=== PATIENT | male | born 1960 | race Caucasian/White ===

== ENCOUNTER 2023-04-12 19:13 | Inpatient (IN) | payer MEDICARE, OTHER ==
[~2023-04-12] VITALS: Ht 170.2 cm; Wt 79.4 kg
[2023-04-12 19:49] LABS: BASOPHILS # (AUTO) 0.1 K/UL (0.0-0.2); EOSINOPHILS # (AUTO) 0.1 K/uL (0.0-0.7); EOSINOPHILS % (AUTO) 2.3 % (0.0-7.0); HEMATOCRIT 36.6 % (36.7-47.1); HEMOGLOBIN 12.3 g/dL (12.5-16.3); LYMPHOCYTES # (AUTO) 0.4 K/uL (0.8-4.8); LYMPHOCYTES % (AUTO) 7.3 % (20.5-51.5); MEAN CORPUSCULAR HEMOGLOBIN 31.2 uug (23.8-33.4); MEAN CORPUSCULAR HGB CONC 34 g/dL (32.5-36.3); MEAN CORPUSCULAR VOLUME 93.1 fL (73.0-96.2); MONOCYTES # (AUTO) 0.3 K/uL (0.1-1.30); MONOCYTES % (AUTO) 4.6 % (0.0-11.0); NEUTROPHILS # (AUTO) 5.1 K/uL (1.8-8.9); NEUTROPHILS % (AUTO) 83.8 % (38.5-71.5); PLATELET COUNT (AUTO) 140 K/uL (152-348); RED BLOOD CELL COUNT(AUTO) 3.93 MIL/uL (4.06-5.63); RED CELL DISTRIBUTION WIDTH 14.9 % (12.1-16.2); WHITE BLOOD COUNT (AUTO) 6.1 K/uL (3.6-10.2)
[2023-04-12] MEDS ORDERED: FERR-56 PO (19:52)
[2023-04-12] MEDS ORDERED: METO50TA16 PO (19:52)
[2023-04-12] MEDS ORDERED: GABA800T11 PO (19:52)
[2023-04-12] MEDS ORDERED: FURO80TA3 PO (19:52)
[2023-04-12] MEDS ORDERED: CLOP75TA33 PO (19:52)
[2023-04-12] MEDS ORDERED: HYDR-4077 PO (19:52)
[2023-04-12] MEDS ORDERED: BACL5TAB PO (19:53)
[2023-04-12] MEDS ORDERED: ASPI81TA31 PO (19:53)
[2023-04-12] MEDS ORDERED: CINA30TA6 PO (19:53)
[2023-04-12] MEDS ORDERED: ESCI-9 PO (19:53)
[2023-04-12] MEDS ORDERED: APIX5TAB PO (19:53)
[2023-04-12] MEDS ORDERED: MIRT-93 PO (19:53)
[2023-04-12] MEDS ORDERED: VIT1TABL46 PO (19:53)
[2023-04-12] MEDS ORDERED: ATOR20TA PO (19:53)
[2023-04-12] MEDS ORDERED: MECL-225 PO (19:53)
[2023-04-12] MEDS ORDERED: PANT40TA49 PO (19:53)
[2023-04-12] MEDS ORDERED: IPRA12.9 INH (19:53)
[2023-04-12 20:04] LABS: DIFFERENTIAL COMMENT 1
[2023-04-12 20:18] LABS: AMMONIA < 10 umol/L (11-32)
[2023-04-12 20:25] LABS: CALCIUM 10.2 mg/dL (8.5-10.1); CARBON DIOXIDE 27 mmol/L (21-32); CHLORIDE 96 mmol/L (98-107); GLUCOSE 108 mg/dL (74-106); POTASSIUM 4.5 mmol/L (3.5-5.1); SODIUM SERUM 136 mmol/L (136-145); UREA NITROGEN, BLOOD 46 mg/dL (7-18)
[2023-04-12 20:27] LABS: CREATININE 7.7 mg/dL (0.6-1.3)
[2023-04-12 20:33] LABS: ALANINE AMINOTRANSFERASE 35 U/L (16-63); ALBUMIN 3.5 g/dL (3.4-5.0); ALKALINE PHOSPHATASE 271 U/L (50-136); ASPARTATE AMINOTRANSFERASE 19 U/L (15-37); BILIRUBIN,DIRECT 0.2 mg/dL (0.0-0.2); BILIRUBIN,TOTAL 0.5 mg/dL (0.2-1.0); TOTAL PROTEIN, SERUM 7.4 g/dL (6.4-8.2)
[2023-04-12 23:18] LABS: SITE, VBG VBG - N/A; VBG AaDO2 86.1 mmHg; VBG BASE EXCESS -0.1 mmol/L (-3-3); VBG HCO3 24.1 mmol/L (22-27); VBG MetHb 0.2 % (0.0-0.5); VBG O2HB 82.2 %; VBG PCO2 37.9 mmHg (41.0-54.0); VBG PH 7.422 (7.310-7.450); VBG PO2 49.6 mmHg (25.0-35.0); VBG TOTAL HEMOGLOBIN 13.4 G/dL (12.0-16.0)
[2023-04-13] MEDS ORDERED: ENOXAPARIN SODIUM 40 MG/0.4 ML DISP.SYRIN SQ SCH (00:45)
[2023-04-13 03:00] VITALS: BP 170/73; TEMP 97.7; O2SAT 95
[2023-04-13] MEDS: PANTOPRAZOLE SODIUM 40 MG TABLET.DR PO SCH (07:00)
[2023-04-13] MEDS: ASPIRIN EC 81 MG TABLET.DR PO SCH (09:00)
[2023-04-13] MEDS ORDERED: ENOXAPARIN SODIUM 30 MG/0.3 ML DISP.SYRIN SUBCUT SCH (09:00)
[2023-04-13] MEDS ORDERED: INSULIN REGULAR, HUMAN 300 UNIT/3 ML VIAL SQ PRN (09:30)
[2023-04-13] MEDS ORDERED: DEXTROSE 50% 50 ML DISP.SYRIN IV PRN (09:30)
[2023-04-13] MEDS ORDERED: IV D5/ 0.9% NACL 1,000 ML IV PRN (10:00)
[2023-04-13] MEDS: CEFTRIAXONE 1 G in IV DEXTROSE 5% 50 ML IV SCH (11:01)
[2023-04-13 11:07] VITALS: BP 172/70; TEMP 98.7; O2SAT 97
[2023-04-13] MEDS: BLOOD SUGAR DIAGNOSTIC 1 EACH STRIP VI SCH ×3 (11:58→23:49)
[2023-04-13] MEDS: hydrALAZINE HCL 20 MG/1 ML VIAL IV PRN (13:24)
[2023-04-13] MEDS ORDERED: ASPIRIN 300 MG RECTAL SUPP RC ONE (13:30)
[2023-04-13 16:00] VITALS: BP 178/88; TEMP 97.6; O2SAT 98
[2023-04-13 20:00] VITALS: BP 147/97; TEMP 97.9; O2SAT 97
[2023-04-13 23:48] VITALS: BP 134/92; TEMP 98.4; O2SAT 97
[2023-04-14] MEDS ORDERED: LORAZEPAM 2 MG/1 ML VIAL IV ONE (01:00)
[2023-04-14] MEDS ORDERED: OLANZAPINE 10 MG VIAL IM ONE ×2 (03:00→04:30)
[2023-04-14 04:00] VITALS: BP 148/90; TEMP 98.6; O2SAT 96
[2023-04-14] MEDS: PANTOPRAZOLE SODIUM 40 MG TABLET.DR PO SCH (06:24)
[2023-04-14] MEDS: BLOOD SUGAR DIAGNOSTIC 1 EACH STRIP VI SCH ×4 (06:24→20:40)
[2023-04-14 06:53] LABS: BASOPHILS # (AUTO) 0.1 K/UL (0.0-0.2); BASOPHILS % (AUTO) 1.7 % (0.0-2.0); DIFFERENTIAL COMMENT 1; HEMOGLOBIN 12.4 g/dL (12.5-16.3); LYMPHOCYTES # (AUTO) 0.5 K/uL (0.8-4.8); LYMPHOCYTES % (AUTO) 12.2 % (20.5-51.5); MEAN CORPUSCULAR HEMOGLOBIN 31.3 uug (23.8-33.4); MEAN CORPUSCULAR HGB CONC 34 g/dL (32.5-36.3); MEAN CORPUSCULAR VOLUME 93.5 fL (73.0-96.2); MONOCYTES # (AUTO) 0.4 K/uL (0.1-1.30); MONOCYTES % (AUTO) 8.7 % (0.0-11.0); NEUTROPHILS # (AUTO) 3.4 K/uL (1.8-8.9); NEUTROPHILS % (AUTO) 76.4 % (38.5-71.5); PLATELET COUNT (AUTO) 138 K/uL (152-348); RED BLOOD CELL COUNT(AUTO) 3.96 MIL/uL (4.06-5.63); RED CELL DISTRIBUTION WIDTH 15.2 % (12.1-16.2); WHITE BLOOD COUNT (AUTO) 4.5 K/uL (3.6-10.2)
[2023-04-14 07:07] LABS: CALCIUM 10.6 mg/dL (8.5-10.1)
[2023-04-14] MEDS ORDERED: ENOXAPARIN SODIUM 30 MG/0.3 ML DISP.SYRIN SUBCUT SCH (09:00)
[2023-04-14] MEDS: ASPIRIN EC 81 MG TABLET.DR PO SCH (10:15)
[2023-04-14] MEDS: CEFTRIAXONE 1 G in IV DEXTROSE 5% 50 ML IV SCH (10:16)
[2023-04-14] MEDS: NIFEdipine XL 30 MG TABSR PO SCH ×2 (10:22→16:41)
[2023-04-14] MEDS ORDERED: HEPARIN SODIUM,PORCINE 5,000 UNITS/ML VIAL SQ SCH (10:47)
[2023-04-14 11:30] VITALS: BP_SYST 178; BP_SYST 184; BP_DIAS 46; BP_DIAS 61; TEMP 98.7; TEMP 98.9; O2SAT 97
[2023-04-14] MEDS ORDERED: LORAZEPAM 2 MG/1 ML VIAL IV PRN (11:45)
[2023-04-14 13:45] VITALS: BP 180/64; O2SAT 99
[2023-04-14 15:47] VITALS: BP 144/51; TEMP 99.4; O2SAT 93
[2023-04-14] MEDS: LORAZEPAM 0.5 MG TABLET PO PRN ×2 (16:37→23:54)
[2023-04-14] MEDS: hydrALAZINE HCL 20 MG/1 ML VIAL IV PRN (16:44)
[2023-04-14] MEDS ORDERED: IPRATROPIUM BROMIDE 12.9 GM INHALER INH PRN (17:00)
[2023-04-14] MEDS ORDERED: MECLIZINE HCL 12.5 MG TABLET PO PRN (17:00)
[2023-04-14] MEDS: MIRTAZAPINE 15 MG TABLET PO SCH (17:40)
[2023-04-14] MEDS: GABAPENTIN 400 MG CAPSULE PO SCH (17:40)
[2023-04-14] MEDS: hydrALAZINE HCL 50 MG TABLET PO SCH (17:41)
[2023-04-14] MEDS: METOPROLOL TARTRATE 50 MG TABLET PO SCH (17:41)
[2023-04-14] MEDS: APIXABAN 5 MG TABLET PO SCH (17:42)
[2023-04-14] MEDS: ESCITALOPRAM OXALATE 10 MG TABLET PO SCH (17:44)
[2023-04-14 18:50] VITALS: BP 155/75; O2SAT 95
[2023-04-14 20:00] VITALS: BP 127/66; TEMP 98.9; O2SAT 94
[2023-04-14] MEDS: ATORVASTATIN 20 MG TABLET PO SCH (20:05)
[2023-04-15] VITALS: BP 121/64; TEMP 100; O2SAT 95
[2023-04-15 04:00] VITALS: BP 108/51; TEMP 98.7; O2SAT 94
[2023-04-15] MEDS: LORAZEPAM 0.5 MG TABLET PO PRN (06:30)
[2023-04-15] MEDS: PANTOPRAZOLE SODIUM 40 MG TABLET.DR PO SCH ×2 (06:30→08:49)
[2023-04-15] MEDS: BLOOD SUGAR DIAGNOSTIC 1 EACH STRIP VI SCH ×4 (06:34→20:50)
[2023-04-15 07:29] LABS: BASOPHILS # (AUTO) 0.1 K/UL (0.0-0.2); BASOPHILS % (AUTO) 1.3 % (0.0-2.0); EOSINOPHILS # (AUTO) 0.1 K/uL (0.0-0.7); EOSINOPHILS % (AUTO) 1.8 % (0.0-7.0); HEMATOCRIT 37.9 % (36.7-47.1); HEMOGLOBIN 12.5 g/dL (12.5-16.3); LYMPHOCYTES % (AUTO) 18.6 % (20.5-51.5); MEAN CORPUSCULAR HEMOGLOBIN 30.9 uug (23.8-33.4); MEAN CORPUSCULAR HGB CONC 33 g/dL (32.5-36.3); MEAN CORPUSCULAR VOLUME 93.9 fL (73.0-96.2); MONOCYTES # (AUTO) 0.7 K/uL (0.1-1.30); MONOCYTES % (AUTO) 13.2 % (0.0-11.0); NEUTROPHILS # (AUTO) 3.5 K/uL (1.8-8.9); NEUTROPHILS % (AUTO) 65.1 % (38.5-71.5); PLATELET COUNT (AUTO) 128 K/uL (152-348); RED BLOOD CELL COUNT(AUTO) 4.04 MIL/uL (4.06-5.63); RED CELL DISTRIBUTION WIDTH 15.1 % (12.1-16.2); WHITE BLOOD COUNT (AUTO) 5.4 K/uL (3.6-10.2)
[2023-04-15 07:43] LABS: CALCIUM 10.8 mg/dL (8.5-10.1); POTASSIUM 4.8 mmol/L (3.5-5.1)
[2023-04-15 07:48] LABS: CREATININE 9.6 mg/dL (0.6-1.3)
[2023-04-15 07:51] LABS: DIFFERENTIAL COMMENT 1
[2023-04-15] MEDS: NIFEdipine XL 30 MG TABSR PO SCH ×2 (08:48→18:22)
[2023-04-15] MEDS: GABAPENTIN 400 MG CAPSULE PO SCH ×3 (08:49→18:21)
[2023-04-15] MEDS: ESCITALOPRAM OXALATE 10 MG TABLET PO SCH (08:49)
[2023-04-15] MEDS: METOPROLOL TARTRATE 50 MG TABLET PO SCH ×2 (08:49→18:21)
[2023-04-15] MEDS: FERROUS SULFATE 325 MG TABEC PO SCH (08:50)
[2023-04-15] MEDS: hydrALAZINE HCL 50 MG TABLET PO SCH ×3 (08:50→18:21)
[2023-04-15] MEDS: ASPIRIN EC 81 MG TABLET.DR PO SCH (08:52)
[2023-04-15] MEDS: APIXABAN 5 MG TABLET PO SCH ×2 (08:53→18:22)
[2023-04-15] MEDS ORDERED: CLOPIDOGREL 75 MG TABLET PO SCH (09:00)
[2023-04-15] MEDS ORDERED: ASPIRIN 81 MG TAB.CHEW PO SCH (09:00)
[2023-04-15] MEDS ORDERED: FUROSEMIDE 40 MG TABLET PO SCH (09:00)
[2023-04-15] MEDS: CEFTRIAXONE 1 G in IV DEXTROSE 5% 50 ML IV SCH (10:47)
[2023-04-15 11:31] VITALS: BP 117/32; TEMP 98.3; O2SAT 96
[2023-04-15] MEDS ORDERED: BACL10TA PO (12:20)
[2023-04-15] MEDS ORDERED: SEVE800T7 PO (12:25)
[2023-04-15] MEDS ORDERED: CALC667T2 PO (12:25)
[2023-04-15] MEDS: INSULIN REGULAR, HUMAN 300 UNIT/3 ML VIAL SQ PRN (12:43)
[2023-04-15] MEDS ORDERED: IPRATROPIUM BROMIDE 0.5 MG/2.5 ML NEBU NEB PRN (12:45)
[2023-04-15] MEDS: CINACALCET HCL 30 MG TABLET PO SCH (12:52)
[2023-04-15 15:34] VITALS: BP 139/38; TEMP 98.5; O2SAT 96
[2023-04-15] MEDS: MIRTAZAPINE 15 MG TABLET PO SCH (18:10)
[2023-04-15 20:00] VITALS: BP 123/57; TEMP 98.4; O2SAT 94
[2023-04-15] MEDS: ATORVASTATIN 20 MG TABLET PO SCH (20:50)
[2023-04-15 20:57] LABS: *BLOOD, URINE 2+ (NEGATIVE); *KETONES,URINE NEGATIVE (NEGATIVE); *UROBILINOGEN,URINE 0.2 E.U./dl (NORMAL); LEUKOCYTE ESTERASE ,URINE TRACE (NEGATIVE); NITRITE, URINE POSITIVE (NEGATIVE); UGLUCOSE TRACE (NEGATIVE)
[2023-04-15 20:58] LABS: *BILIRUBIN,URIN 1+ (NEGATIVE); *CLARITY,URINE CLOUDY (CLEAR); *COLOR,URINE AMBER (YELLOW); *PROTEIN,URINE 3+ (NEGATIVE)
[2023-04-15 21:26] LABS: BACTERIA,URINE MANY /HPF (NONE SEEN); SQUAMOUS EPITHELIAL CELL,UR NONE SEEN /HPF (NONE SEEN)
[2023-04-16] VITALS: BP 132/58; TEMP 98.2; O2SAT 95
[2023-04-16 04:00] VITALS: BP 113/47; TEMP 98.7; O2SAT 96
[2023-04-16] MEDS: PANTOPRAZOLE SODIUM 40 MG TABLET.DR PO SCH ×2 (06:42→08:27)
[2023-04-16] MEDS: BLOOD SUGAR DIAGNOSTIC 1 EACH STRIP VI SCH ×4 (06:44→20:51)
[2023-04-16 07:04] LABS: CALCIUM 9.5 mg/dL (8.5-10.1); POTASSIUM 4.3 mmol/L (3.5-5.1)
[2023-04-16 07:05] LABS: BASOPHILS # (AUTO) 0.1 K/UL (0.0-0.2); BASOPHILS % (AUTO) 1.4 % (0.0-2.0); EOSINOPHILS # (AUTO) 0.3 K/uL (0.0-0.7); EOSINOPHILS % (AUTO) 4.7 % (0.0-7.0); HEMATOCRIT 32.5 % (36.7-47.1); LYMPHOCYTES # (AUTO) 0.9 K/uL (0.8-4.8); LYMPHOCYTES % (AUTO) 16.1 % (20.5-51.5); MEAN CORPUSCULAR HGB CONC 34 g/dL (32.5-36.3); MEAN CORPUSCULAR VOLUME 94.1 fL (73.0-96.2); MONOCYTES # (AUTO) 0.5 K/uL (0.1-1.30); MONOCYTES % (AUTO) 9.6 % (0.0-11.0); NEUTROPHILS # (AUTO) 3.9 K/uL (1.8-8.9); NEUTROPHILS % (AUTO) 68.2 % (38.5-71.5); PLATELET COUNT (AUTO) 117 K/uL (152-348); RED BLOOD CELL COUNT(AUTO) 3.45 MIL/uL (4.06-5.63); RED CELL DISTRIBUTION WIDTH 15.2 % (12.1-16.2); WHITE BLOOD COUNT (AUTO) 5.7 K/uL (3.6-10.2)
[2023-04-16 07:10] LABS: DIFFERENTIAL COMMENT 1; MAGNESIUM 2.9 mg/dL (1.8-2.4)
[2023-04-16 07:28] LABS: PHOSPHOROUS 8.3 mg/dL (2.5-4.9)
[2023-04-16 07:29] LABS: CREATININE 10.9 mg/dL (0.6-1.3)
[2023-04-16] MEDS: NIFEdipine XL 30 MG TABSR PO SCH ×2 (08:26→17:00)
[2023-04-16] MEDS: SEVELAMER CARBONATE 800 MG TABLET PO SCH ×3 (08:26→17:12)
[2023-04-16] MEDS: GABAPENTIN 400 MG CAPSULE PO SCH ×3 (08:26→17:11)
[2023-04-16] MEDS: CINACALCET HCL 30 MG TABLET PO SCH (08:27)
[2023-04-16] MEDS: hydrALAZINE HCL 50 MG TABLET PO SCH ×3 (08:27→17:00)
[2023-04-16] MEDS: ESCITALOPRAM OXALATE 10 MG TABLET PO SCH (08:27)
[2023-04-16] MEDS: FERROUS SULFATE 325 MG TABEC PO SCH (08:27)
[2023-04-16] MEDS: METOPROLOL TARTRATE 50 MG TABLET PO SCH ×2 (08:27→17:00)
[2023-04-16] MEDS: FOLIC ACID/VITAMIN B COMP W-C TABLET PO SCH (08:27)
[2023-04-16] MEDS: ASPIRIN EC 81 MG TABLET.DR PO SCH (08:27)
[2023-04-16] MEDS: CALCIUM ACETATE 667 MG CAP/TAB PO SCH ×3 (08:27→17:11)
[2023-04-16] MEDS: INSULIN REGULAR, HUMAN 300 UNIT/3 ML VIAL SQ PRN ×2 (08:30→11:58)
[2023-04-16] MEDS: APIXABAN 5 MG TABLET PO SCH ×2 (08:31→17:14)
[2023-04-16 09:53] LABS: POTASSIUM 4.6 mmol/L (3.5-5.1)
[2023-04-16 10:03] LABS: CREATININE 11.2 mg/dL (0.6-1.3)
[2023-04-16] MEDS: CEFTRIAXONE 1 G in IV DEXTROSE 5% 50 ML IV SCH (10:16)
[2023-04-16 11:29] VITALS: BP 141/38; TEMP 97.5; O2SAT 95
[2023-04-16] MEDS ORDERED: IV NORMAL SALINE 250 ML IV ONE (13:12)
[2023-04-16] MEDS ORDERED: SWABABLE VALVE TRANSFER SET EA MC ONE (13:12)
[2023-04-16] MEDS ORDERED: IOHEXOL 350 100 ML INFUS..BTL ONE (13:12)
[2023-04-16 16:14] VITALS: BP 146/38; TEMP 98.1; O2SAT 94
[2023-04-16] MEDS: MIRTAZAPINE 15 MG TABLET PO SCH (17:12)
[2023-04-16 20:00] VITALS: BP 128/80; TEMP 98; O2SAT 93
[2023-04-16] MEDS: ATORVASTATIN 20 MG TABLET PO SCH (20:47)
[2023-04-17] VITALS: BP 140/48; TEMP 100; O2SAT 93
[2023-04-17 01:23] VITALS: O2SAT 94; O2SAT 96
[2023-04-17 04:00] VITALS: BP 149/42; TEMP 99.6; O2SAT 95
[2023-04-17] MEDS: PANTOPRAZOLE SODIUM 40 MG TABLET.DR PO SCH ×2 (06:15→09:09)
[2023-04-17] MEDS: BLOOD SUGAR DIAGNOSTIC 1 EACH STRIP VI SCH ×2 (06:53→11:30)
[2023-04-17 07:53] LABS: BASOPHILS # (AUTO) 0.1 K/UL (0.0-0.2); BASOPHILS % (AUTO) 1.2 % (0.0-2.0); EOSINOPHILS # (AUTO) 0.3 K/uL (0.0-0.7); EOSINOPHILS % (AUTO) 5.5 % (0.0-7.0); HEMATOCRIT 32.6 % (36.7-47.1); HEMOGLOBIN 10.9 g/dL (12.5-16.3); LYMPHOCYTES # (AUTO) 0.6 K/uL (0.8-4.8); LYMPHOCYTES % (AUTO) 10.9 % (20.5-51.5); MEAN CORPUSCULAR HEMOGLOBIN 31.6 uug (23.8-33.4); MEAN CORPUSCULAR HGB CONC 33 g/dL (32.5-36.3); MEAN CORPUSCULAR VOLUME 94.6 fL (73.0-96.2); MONOCYTES # (AUTO) 0.5 K/uL (0.1-1.30); MONOCYTES % (AUTO) 8.9 % (0.0-11.0); NEUTROPHILS % (AUTO) 73.5 % (38.5-71.5); PLATELET COUNT (AUTO) 116 K/uL (152-348); RED BLOOD CELL COUNT(AUTO) 3.45 MIL/uL (4.06-5.63); RED CELL DISTRIBUTION WIDTH 15.3 % (12.1-16.2); WHITE BLOOD COUNT (AUTO) 5.4 K/uL (3.6-10.2)
[2023-04-17 07:58] LABS: CALCIUM 9.1 mg/dL (8.5-10.1); MAGNESIUM 2.7 mg/dL (1.8-2.4); PHOSPHOROUS 5.8 mg/dL (2.5-4.9); POTASSIUM 4.9 mmol/L (3.5-5.1)
[2023-04-17 07:59] LABS: CREATININE 8.6 mg/dL (0.6-1.3)
[2023-04-17 08:36] LABS: DIFFERENTIAL COMMENT 1
[2023-04-17] MEDS: APIXABAN 5 MG TABLET PO SCH (09:08)
[2023-04-17] MEDS: NIFEdipine XL 30 MG TABSR PO SCH (09:09)
[2023-04-17] MEDS: ESCITALOPRAM OXALATE 10 MG TABLET PO SCH (09:09)
[2023-04-17] MEDS: METOPROLOL TARTRATE 50 MG TABLET PO SCH (09:09)
[2023-04-17] MEDS: CINACALCET HCL 30 MG TABLET PO SCH (09:09)
[2023-04-17] MEDS: GABAPENTIN 400 MG CAPSULE PO SCH ×2 (09:09→12:44)
[2023-04-17] MEDS: CALCIUM ACETATE 667 MG CAP/TAB PO SCH ×2 (09:09→12:43)
[2023-04-17] MEDS: SEVELAMER CARBONATE 800 MG TABLET PO SCH ×2 (09:10→12:44)
[2023-04-17] MEDS: hydrALAZINE HCL 50 MG TABLET PO SCH ×2 (09:10→12:44)
[2023-04-17] MEDS: FERROUS SULFATE 325 MG TABEC PO SCH (09:10)
[2023-04-17] MEDS: FOLIC ACID/VITAMIN B COMP W-C TABLET PO SCH (09:10)
[2023-04-17] MEDS: ASPIRIN EC 81 MG TABLET.DR PO SCH (09:10)
[2023-04-17 11:34] VITALS: BP 140/75; TEMP 98.2; O2SAT 98
[2023-04-17 12:44] VITALS: BP 140/75
[2023-04-21 04:06] LABS: METHYLMALONIC ACID 991 nmol/L (0-378)
== END 2023-04-17 14:30 | DRG 917 ==
LOC: ER 19:15 → TELE3 04-13 02:27
PROVIDERS: ADMIT Nurse Practitioner Acute Care; ATTEND Nurse Practitioner Family
PROC: 5A1D70Z Performance of Urinary Filtration, Intermittent, Less than 6 Hours Per Day (ICD-10-PCS; principal; 2023-04-13)
PROC: 05H533Z Insertion of Infusion Device into Right Subclavian Vein, Percutaneous Approach (ICD-10-PCS; 2023-04-13)
PROC: B546ZZA Ultrasonography of Right Subclavian Vein, Guidance (ICD-10-PCS; 2023-04-13)
DX: T40.711A Poisoning by cannabis, accidental (unintentional), initial encounter (principal); G92.8 Other toxic encephalopathy; I21.A1 Myocardial infarction type 2; N18.6 End stage renal disease; I13.2 Hypertensive heart and chronic kidney disease with heart failure and with stage 5 chronic kidney disease, or end stage renal disease; J98.11 Atelectasis; H70.93 Unspecified mastoiditis, bilateral; I50.9 Heart failure, unspecified; Z99.2 Dependence on renal dialysis; E78.5 Hyperlipidemia, unspecified; F40.240 Claustrophobia; I25.10 Atherosclerotic heart disease of native coronary artery without angina pectoris; J44.9 Chronic obstructive pulmonary disease, unspecified; Z86.718 Personal history of other venous thrombosis and embolism; Z95.1 Presence of aortocoronary bypass graft; Z91.51 Personal history of suicidal behavior; Z87.891 Personal history of nicotine dependence; Z86.73 Personal history of transient ischemic attack (TIA), and cerebral infarction without residual deficits; Z79.82 Long term (current) use of aspirin; Z79.01 Long term (current) use of anticoagulants; E11.22 Type 2 diabetes mellitus with diabetic chronic kidney disease; M89.8X9 Other specified disorders of bone, unspecified site; Z95.5 Presence of coronary angioplasty implant and graft; F32.9 Major depressive disorder, single episode, unspecified; F41.9 Anxiety disorder, unspecified; G31.9 Degenerative disease of nervous system, unspecified; E11.40 Type 2 diabetes mellitus with diabetic neuropathy, unspecified; Z20.822 Contact with and (suspected) exposure to COVID-19; Y92.009 Unspecified place in unspecified non-institutional (private) residence as the place of occurrence of the external cause
CPT/HCPCS: 36415; 36600; 70450; 70496; 70551; 71045; 82747; 83605; 83735; 83921; 84100; 84443; 84484; 85014; 85025; 85651; 85730; 86140; 87040; 90937; 93005; 93880; A4606; A4663; C1758; G0378; J0360; J0696; J1644; J1650; J1815; J2060; J2358; J3590; J7040; J7042; Q9967